=== PATIENT | male | born 1930 | race Caucasian/White ===

== ENCOUNTER 2016-07-31 10:43 | Emergency (ER) | payer OTHER, BC ==
[~2016-07-31] VITALS: Ht 175.3 cm; Wt 79.5 kg
[~2016-07-31 10:43] MED LIST: ALTACE10 MG PO; ASPIR 8181 M1 PO; ATENOLOL25 MG PO; CELEBREX200 MG PO; COZAAR100 MG PO; FLONASE16 G1 BOTH NARES; HYDROCHLOROTH12.5 M1 PO; LIPITOR20 MG PO; LOMOTIL TABLET1 EACH PO; PRESERVISIO1 CAPSULE PO; TEGRETOL100 MG PO; TENORMIN50 MG PO; Tessalon Perle PO; ULTRAM50 MG PO; ZITHROMAX250 MG PO
[2016-07-31 11:55] VITALS: BP 196/96
== END 2016-07-31 11:57 | disposition home or self-care (01) ==
LOC: EME 10:43
PROC: 3E0234Z Introduction of Serum, Toxoid and Vaccine into Muscle, Percutaneous Approach (ICD-10-PCS; principal; 2016-07-31)
DX: S61.401A Unspecified open wound of right hand, initial encounter (principal); E78.5 Hyperlipidemia, unspecified; I10 Essential (primary) hypertension; W23.0XXA Caught, crushed, jammed, or pinched between moving objects, initial encounter; Z23 Encounter for immunization; Z91.041 Radiographic dye allergy status; Z88.6 Allergy status to analgesic agent
CPT/HCPCS: 99281; 99284; J0690

== ENCOUNTER → 2017-01-14 | Outpatient (CLI) | payer OTHER, BC ==
[~2017-01-14] VITALS: Ht 170.2 cm; Wt 71.2 kg
[~2017-01-14] MED LIST changes: +CENTRUM COMPLE1 EACH PO; +METAMUCIL PACKE1 PKT PO; +NORVASC2.5 MG PO; +PRILOSEC10 MG PO; +PROBIOTIC1 EAC1 PO
== END | disposition home or self-care (01) ==
LOC: AMB 07:51
DX: K22.8 Other specified diseases of esophagus (principal); K22.5 Diverticulum of esophagus, acquired; K22.2 Esophageal obstruction; E78.00 Pure hypercholesterolemia, unspecified; I10 Essential (primary) hypertension; M19.90 Unspecified osteoarthritis, unspecified site; Z95.0 Presence of cardiac pacemaker; Z98.1 Arthrodesis status; Z87.891 Personal history of nicotine dependence; Z79.82 Long term (current) use of aspirin; Z88.6 Allergy status to analgesic agent; Z88.5 Allergy status to narcotic agent; Z91.030 Bee allergy status; Z91.013 Allergy to seafood
CPT/HCPCS: J0330; J3010